=== PATIENT | female | born 2005 | race Caucasian/White ===

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

== ENCOUNTER → 2024-03-27 | Outpatient (CLI) | payer BC ==
[2024-03-27 20:45] LABS: HCT 45.6 % (37.2-46.3); HGB 15.1 g/dL (12.0-15.0); MCH 29.7 pg (27.0-32.0); MCHC 33.1 g/dL (32.0-37.0); MCV 89.8 FL (80.0-97.0); Mean Platelet Volume 9.7 FL (9.5-12.2); NRBC Per 100 WBC 0 X 10*3/uL (0.00-0.01); Platelet Count 228 X 10*3/uL (140-440); RBC 5.08 X 10*6/uL (4.10-5.20); WBC 5.98 X 10*3/uL (4.50-10.00)
[2024-03-27 20:51] LABS: ALT 16 U/L (8-44); AST 16 U/L (13-35); Albumin 4.7 g/dL (3.8-4.9); Albumin/Globulin Ratio 1.62 Ratio (1.60-3.17); Alkaline Phosphatase 93 U/L (41-126); BUN/Creat Ratio 17.75 Ratio (12.00-20.00); Blood Urea Nitrogen 14.2 mg/dL (9.0-27.0); Calcium 9.6 mg/dL (8.7-10.3); Carbon Dioxide 25.1 mmol/L (21.6-31.8); Chloride 105 mmol/L (96-109); Globulin 2.9 g/dL (1.6-3.3); Glucose 87 mg/dL (70-110); Potassium 4.4 mmol/L (3.5-5.5); Sodium 140 mmol/L (135-145); Total Bilirubin 0.7 mg/dL (0.3-1.2); Total Protein 7.6 g/dL (6.2-8.2)
== END | disposition home or self-care (01) ==
LOC: LABWHC1 14:40
PROVIDERS: ATTEND Internal Medicine Gastroenterology
DX: K51.90 Ulcerative colitis, unspecified, without complications (principal)
CPT/HCPCS: 36415; 80053; 85027

== ENCOUNTER 2024-09-12 00:11 | Emergency (ER) | payer BC, OTHER ==
[2024-09-12] MEDS: KETOROLAC 15 MG/ML 1 ML VIAL IM STA (01:42)
--- NOTE | 2024-09-12 03:56 | ED ---
General Adult HPI - General Chief complaint: Extremity Injury, Lower Stated complaint: [facility]- leg injury Time Seen by Provider: 09/12/24 00:33 Source: patient Mode of arrival: ambulatory - History of Present Illness Initial comments: 18-year-old female presenting with chief complaint of right leg and lower back pain. 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 States that throughout the week she waited for the pain to improve but the pain has actually been worsening. She does have pain even at rest but it is much worse with weightbearing, ambulating, and range of motion. She gets pain that starts in the lower back that shoots down her leg. She has not been taking any [id number] medication for pain. No loss of bowel or bladder control or saddle paresthesia. No joint swelling. - Related Data Allergies Allergy/AdvReac Type Severity Reaction Status Date / Time No Known Allergies Allergy Verified 09/12/24 00:26 Review of Systems ROS Statement: Those systems with pertinent positive or pertinent negative responses have been documented in the HPI. ROS Other: All systems not noted in ROS Statement are negative. Past Medical History Additional Past Medical History / Comment(s): UC Past Surgical History: No Surgical Hx Reported Past Psychological History: Anxiety Smoking Status: Former smoker Past Alcohol Use History: None Reported Past Drug Use History: None Reported General Exam Limitations: no limitations General appearance: alert, in no apparent distress Head exam: Present: atraumatic, normocephalic, normal inspection Eye exam: Present: normal appearance, EOMI Neck exam: Present: normal inspection. Absent: meningismus Respiratory exam: Absent: respiratory distress Cardiovascular Exam: Present: regular rate Extremities exam: Present: normal inspection, full ROM, tenderness. Absent: pedal edema Back exam: Present: normal inspection, tenderness Neurological exam: Present: alert, oriented X3 Psychiatric exam: Present: normal affect, normal mood Skin exam: Present: warm, dry, normal color Course Vital Signs 09/12/24 00:23 Temperature 99.0 F Pulse Rate 88 Respiratory 18 Rate Blood Pressure 152/77 O2 Sat by Pulse 99 Oximetry Medical Decision Making - Medical Decision Making Was pt. sent in by a medical professional or institution (, PA, PERSONAL CLOTHING LAUNDRY AIDE, urgent care, hospital, or residential...) When possible be specific @ -No Did you speak to anyone other than the patient for history (EMS, parent, family, police, friend...)? What history was obtained from this source @ -No Did you review nursing and triage notes (agree or disagree)? Why? @ -I reviewed and agree with nursing and triage notes Were old charts reviewed (outside hosp., previous admission, EMS record, old EKG, old radiological studies, urgent care reports/EKG's, residential records)? Report findings @ -No old charts were reviewed Differential Diagnosis (chest pain, altered mental status, abdominal pain women, abdominal pain men, vaginal bleeding, weakness, fever, dyspnea, syncope, headache, dizziness, GI bleed, back pain, seizure, CVA, palpatations, mental health, musculoskeletal)? @ -Differential Musculoskeletal Muscular strain, contusion, ligament sprain, fracture, arthritis, septic arthritis, bursitis, cellulitis, muscle spasm, nerve compression, DVT, arterial occlusion, herpes zoster, electrolyte abnormality, tumor.... This is not meant to be in all inclusive list EKG interpreted by me (3pts min.). @ -As above X-rays interpreted by me (1pt min.). @ -On preliminary reading I see no acute osseous process. Formal report is pending. CT interpreted by me (1pt min.). @ -None done U/S interpreted by me (1pt. min.). @ -None done What testing was considered but not performed or refused? (CT, X-rays, U/S, labs)? Why? @ -None What meds were considered but not given or refused? Why? @ -None Did you discuss the management of the patient with other professionals (professionals i.e. , PA, PERSONAL CLOTHING LAUNDRY AIDE, lab, RT, psych nurse, neonatal social worker, reverberatory furnace operator, teacher, employment officer, ed case manager)? Give summary @ -No Was smoking cessation discussed for >3mins.? @ -No Was critical care preformed (if so, how long)? @ -No Were there social determinants of health that impacted care today? How? (Homelessness, low income, unemployed, alcoholism, drug addiction, transportation, low edu. Level, literacy, decrease access to med. care, usp, rehab)? @ -No Was there de-escalation of care discussed even if they declined (Discuss DNR or withdrawal of care, Hospice)? DNR status @ -No What co-morbidities impacted this encounter? (DM, HTN, Smoking, COPD, CAD, Cancer, CVA, ARF, Chemo, Hep., AIDS, mental health diagnosis, sleep apnea, morbid obesity)? @ -None Was patient admitted / discharged? Hospital course, mention meds given and route, prescriptions, significant lab abnormalities, going to OR and other pertinent info. @ -18-year-old female presenting with chief complaint of lower back and right leg pain. 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 History and physical examination are conducted. X-rays obtained, preliminary reading there is no acute osseous process noted. Patient is educated on today's findings. She is provided with Toradol. She is instructed to follow-up with orthopedics for clearance to return to her full duties at work. Follow-up with PCP. Report back to ER with any new or worsening symptoms. Discussed return parameters and answered all questions. Patient conveyed verbal understanding and agreed to the plan. I discussed this case in detail with my attending Dr. Barnes Undiagnosed new problem with uncertain prognosis? @ -No Drug Therapy requiring intensive monitoring for toxicity (Heparin, Nitro, Insulin, Cardizem)? @ -No Were any procedures done? @ -No Diagnosis/symptom? @ -Back injury, leg injury Acute, or Chronic, or Acute on Chronic? @ -Acute Uncomplicated (without systemic symptoms) or Complicated (systemic symptoms)? @ -Uncomplicated Side effects of treatment? @ -No Exacerbation, Progression, or Severe Exacerbation? @ -No Poses a threat to life or bodily function? How? (Chest pain, USA, VT, pneumonia, PE, COPD, DKA, ARF, appy, cholecystitis, CVA, Diverticulitis, Homicidal, Suicidal, threat to staff... and all critical care pts) @ -Low likelihood Disposition Clinical Impression: Leg injury, Back injury Disposition: HOME SELF-CARE Condition: Good Instructions (If sedation given, give patient instructions): Back Pain (ED), Leg Pain (ED) Additional Instructions: Follow-up with PCP and orthopedics. Report back to ER with any new or worsening symptoms. You should be evaluated by orthopedics and cleared to return to work prior to returning to her normal duties. Is patient prescribed a controlled substance at d/c from ED?: No Referrals: José Miguel Curry MD [Primary Care Provider] - 1-2 days Riky Josue DO [Doctor of Osteopathic Medicine] - 1-2 days Time of Disposition: 03:56
[2024-09-12 04:17] VITALS: BP 112/66; PULSE 69; RESP 16; TEMP 98.2
--- NOTE | 2024-09-12 05:02 | XR ---
EXAM: XR Lumbosacral Spine, 2 or 3 Views CLINICAL HISTORY: ITS.REASON XR Reason: injury TECHNIQUE: Frontal and lateral views of the lumbar spine and sacrum. COMPARISON: No relevant prior studies available. FINDINGS: Vertebrae: Unremarkable. No acute fracture. Normal alignment. Sacrum/coccyx: Unremarkable as visualized. No acute fracture. Disc spaces: No acute findings. No significant narrowing. Soft tissues: Unremarkable. IMPRESSION: Normal lumbar spine x-rays.
== END 2024-09-12 04:06 | disposition home or self-care (01) ==
LOC: EC 00:11
DX: S79.921A Unspecified injury of right thigh, initial encounter (principal); S39.92XA Unspecified injury of lower back, initial encounter; Z87.891 Personal history of nicotine dependence; W23.0XXA Caught, crushed, jammed, or pinched between moving objects, initial encounter
CPT/HCPCS: 72100; 99283; 96372; J1885

== ENCOUNTER → 2024-09-12 | Outpatient (CLI) | payer OTHER ==
--- NOTE | 2024-09-12 14:14 | XR ---
EXAMINATION TYPE: XR pelvis AP view, XR femur RT DATE OF EXAM: 09/12/2024 CLINICAL INDICATION: Female, 18 years old with history of S30.0XXA Traumatic Contusion S70.11XA, pain TECHNIQUE: A single AP view of the pelvis is obtained. 2 views of the right femur. COMPARISON: None. FINDINGS: There is no acute fracture/dislocation evident in the pelvis or right femur. The hip and sacroiliac joints appear symmetric and unremarkable. Pubic symphysis is intact. The overlying soft ti ssue appears unremarkable. IMPRESSION: There is no acute fracture or dislocation in the pelvis or right femur. [facility], , 09/12/2024 2:12 PM
== END | disposition home or self-care (01) ==
LOC: RADXRMAIN 13:21
PROVIDERS: ATTEND Emergency Medicine
DX: S30.0XXA Contusion of lower back and pelvis, initial encounter (principal); S70.11XA Contusion of right thigh, initial encounter
CPT/HCPCS: 72170

== ENCOUNTER → 2024-09-13 | Outpatient (CLI) | payer BC | END | disposition home or self-care (01) | LOC: LABWHC1 14:26 | DX: R76.8 Other specified abnormal immunological findings in serum (principal) | CPT/HCPCS: 36415; 84443 ==